=== PATIENT | male | born 1980 | race Caucasian/White ===

== ENCOUNTER 2023-09-09 21:10 | Emergency (ER) | payer OTHER ==
[~2023-09-09] VITALS: Ht 182.9 cm; Wt 98.4 kg
[2023-09-09 22:13] VITALS: BP 118/88; TEMP 99.6
[2023-09-09 22:35] LABS: Basophils # (auto) 0 10 ^3/uL (0-0.2); Basophils % (auto) 0.6 % (0.0-2.0); Eosinophils # (auto) 0.2 10 ^3/uL (0-0.8); Eosinophils % (auto) 2.4 % (0.0-7.0); Hematocrit 43.7 % (41.0-53.0); Hemoglobin 15.1 g/dL (13.5-17.5); Lymphocytes # (auto) 1.7 10 ^3/uL (0.4-5.4); Lymphocytes % (auto) 26.4 % (10.0-50.0); Mean Corpuscular Hemoglobin 31.6 pg (28.0-32.0); Mean Corpuscular Hgb Conc. 34.5 g/dL (32.0-36.0); Mean Corpuscular Volume 91.6 fL (80.0-100.0); Monocytes # (auto) 0.9 10 ^3/uL (0-1.3); Monocytes % (auto) 14.1 % (0.0-12.0); Neutrophils # (auto) 3.7 10 ^3/uL (1.6-8.6); Neutrophils % (auto) 56.5 % (37.0-80.0); Nucleated Red Blood Cells % 0.1 %; Red Blood Cells 4.77 10^6/uL (4.5-5.90); Red Cell Distribution Width 13.3 % (11.8-14.3); White Blood Cell 6.6 10^3/uL (4.4-10.8)
[2023-09-09 22:49] LABS: Alanine Aminotransferase 25 U/L (7-40); Albumin 4.4 g/dL (3.2-4.8); Alkaline Phosphatase 85 U/L (46-116); Anion Gap 6 (5-15); Aspartate Aminotransferase 27 U/L (13-40); BUN/Creatinine Ratio 9.9 (10.0-20.0); Bilirubin, Total 0.3 mg/dL (0.2-1.0); Blood Urea Nitrogen 8 mg/dL (9-23); Calcium 9.2 mg/dL (8.5-10.1); Carbon Dioxide 27 mmol/L (20-30); Chloride 105 mmol/L (98-107); Glucose 99 mg/dL (74-106); Potassium 3.9 mmol/L (3.5-5.1); Sodium 138 mmol/L (136-145); Total Protein 7.3 g/dL (5.7-8.2)
[2023-09-10] MEDS ORDERED: AUG875T PO (00:28)
[2023-09-10] MEDS ORDERED: ALBUAER3 IN (00:28)
[2023-09-10] MEDS ORDERED: BENZ200C64 PO (00:28)
[2023-09-10] MEDS ORDERED: DEXT1LOZ10 MT (00:28)
[2023-09-10] MEDS ORDERED: PRED20TA2 PO (00:28)
[2023-09-10 00:35] VITALS: PULSE 103
[2023-09-10] MEDS: DexAMETHasone SOD PHOS 10MG/1ML VIAL INJ IM ONE (00:36)
[2023-09-10] MEDS: guaiFENesin-CODEINE Liq 5 ML UD PO ONE (00:36)
[2023-09-10] MEDS: ALBUTEROL SULF 2.5 MG/0.5ML(0.5%) NEB SOLN NEB ONE (00:49)
[2023-09-10] MEDS: IPRATROPIUM BROM 0.5 MG/2.5ML INH SOL NEB ONE (00:50)
[2023-09-10 00:51] VITALS: RESP 22; O2SAT 97
== END 2023-09-10 00:55 | disposition home or self-care (01) ==
LOC: ER 21:10
DX: J20.9 Acute bronchitis, unspecified (principal); J03.90 Acute tonsillitis, unspecified; R07.89 Other chest pain
CPT/HCPCS: 36415; 71045; 80053; 84484; 85025; 93005; 94640; 96372; 99285; J1100; J7644